=== PATIENT | female | born 1950 | race Two or more races ===

== ENCOUNTER → 2020-12-17 | Outpatient (CLI) | payer MEDICARE ==
[~2020-12-17] MED LIST: AMLO-211 PO; ATOR40TA78 PO
== END | disposition home or self-care (01) ==
LOC: STAR 10:44
PROVIDERS: ATTEND Obstetrics & Gynecology Female Pelvic Medicine and Reconstructive Surgery
DX: Z01.812 Encounter for preprocedural laboratory examination (principal); Z20.822 Contact with and (suspected) exposure to COVID-19; R10.2 Pelvic and perineal pain; N81.10 Cystocele, unspecified; N81.6 Rectocele; N39.3 Stress incontinence (female) (male)
CPT/HCPCS: 93005; U0003; U0005

== ENCOUNTER 2020-12-23 07:42 | Day surgery (SDC) | payer MEDICARE ==
[~2020-12-23] VITALS: Ht 157.5 cm; Wt 80.4 kg
[~2020-12-23 07:42] MED LIST changes: +BUPIVACAINE/PF 0.25% ONE; +EPINEPHRINE 1 MG/ML, 1ML ONE; +GENTAMICIN 80 MG/2 ML ONE; +VANCOMYCIN 500 MG ONE
[2020-12-23] MEDS ORDERED: LACTATED RINGERS 1,000 ML IV SCH (08:30)
[2020-12-23] MEDS ORDERED: CHLORHEXIDINE 15 ML UDC PO ONE (08:30)
[2020-12-23] MEDS ORDERED: FENTANYL PF 250 MCG/5ML ONE (09:38)
[2020-12-23] MEDS ORDERED: OXYcodone 5 MG/5 ML ORAL.SOL UDC PO PRN (11:00)
[2020-12-23] MEDS ORDERED: ACETAMINOPHEN 325 MG TABLET PO PRN (11:00)
[2020-12-23] MEDS ORDERED: LORazepam 2 MG/ML, 1ML IVPush PRN (11:00)
[2020-12-23] MEDS ORDERED: ONDANSETRON 2MG/ML, 2ML IVPush PRN (11:00)
[2020-12-23] MEDS ORDERED: HYDROmorphone 1 MG/ML, 1ML INJ IVPush PRN (11:00)
[2020-12-23] MEDS ORDERED: FENTANYL PF 100 MCG/2ML IV PRN (11:00)
[2020-12-23] MEDS ORDERED: PROMETHAZINE 25 MG/ML, 1ML IVPush PRN (11:00)
[2020-12-23] MEDS ORDERED: EPHEDRINE 50 MG/ML, 1ML IVPush PRN (11:00)
[2020-12-23] MEDS ORDERED: METHOCARBAMOL 1,000 MG in DEXTROSE 5% 100 ML IV PRN (11:00)
[2020-12-23] MEDS ORDERED: MEPERIDINE/PF 25MG/0.5ML IVPush PRN (11:00)
[2020-12-23] MEDS ORDERED: hydrALAzine 20 MG/ML, 1ML IV PRN (11:00)
[2020-12-23] MEDS ORDERED: LABETALOL 5MG/ML, 20ML IV PRN (11:00)
[2020-12-23] MEDS ORDERED: OXYcodone 5 MG/5 ML ORAL.SOL UDC ONE (12:55)
[2020-12-23] MEDS ORDERED: FENTANYL PF 100 MCG/2ML ONE (12:55)
[2020-12-23] MEDS ORDERED: PROPOFOL 10 MG/ML, 20ML ONE (16:22)
[2020-12-23] MEDS ORDERED: DEXAMETHASONE 4 MG/ML, 1ML ONE (16:22)
[2020-12-23] MEDS ORDERED: CEFAZOLIN 1,000 MG ONE (16:22)
[2020-12-23] MEDS ORDERED: ONDANSETRON 2MG/ML, 2ML ONE (16:24)
[2020-12-23] MEDS ORDERED: KETOROLAC 30 MG/1 ML ONE (16:24)
== END 2020-12-23 14:15 | disposition home or self-care (01) ==
LOC: OUT 07:42
PROVIDERS: ATTEND Obstetrics & Gynecology Female Pelvic Medicine and Reconstructive Surgery
DX: N81.89 Other female genital prolapse (principal); N39.46 Mixed incontinence; N81.11 Cystocele, midline; N81.6 Rectocele; N81.5 Vaginal enterocele; I10 Essential (primary) hypertension; E78.5 Hyperlipidemia, unspecified; G43.909 Migraine, unspecified, not intractable, without status migrainosus; M19.90 Unspecified osteoarthritis, unspecified site; F32.9 Major depressive disorder, single episode, unspecified; Z79.899 Other long term (current) drug therapy; Z90.49 Acquired absence of other specified parts of digestive tract; Z90.710 Acquired absence of both cervix and uterus; Z90.722 Acquired absence of ovaries, bilateral; Z90.79 Acquired absence of other genital organ(s)
CPT/HCPCS: 57265; 57282; 57288; C1771; J0171; J0690; J1100; J1580; J1885; J2405; J2704; J3010; J3370; J7120